=== PATIENT | male | born 1980 | race Caucasian/White ===

== ENCOUNTER 2017-05-11 17:14 | Emergency (ER) | payer OTHER ==
[~2017-05-11] VITALS: Ht 162.6 cm; Wt 79.5 kg
[2017-05-11] MEDS ORDERED: SODIUM CHLORIDE 0.9% 1,000 ML IV ONE (17:25)
[2017-05-11] MEDS ORDERED: METOCLOPRAMIDE HCL 5 MG/ML 2 ML VIAL IVP ONE (17:30)
[2017-05-11] MEDS ORDERED: ONDANSETRON HCL 4 MG/2 ML VIAL IVP ONE (17:30)
[2017-05-11] MEDS ORDERED: KETOROLAC TROMETHAMINE 30 MG/ML VIAL IVP ONE (17:30)
[2017-05-11 17:53] LABS: BASOPHILS % (AUTO) 0.2 % (0.0-2.0); EOSINOPHILS % (AUTO) 0.1 % (1.0-6.0); HEMATOCRIT 43.8 % (41-53); HEMOGLOBIN 15.1 g/dL (13.5-17.5); LYMPHOCYTES # (AUTO) 1.1 K/uL (1.0-4.8); LYMPHOCYTES % (AUTO) 15.9 % (22.0-44.0); MEAN CORPUSCULAR HEMOGLOBIN 30.8 pg (26.0-34.0); MEAN CORPUSCULAR HGB CONC 34.5 G/dL (31.0-37.0); MEAN CORPUSCULAR VOLUME 89 fL (80-100); MONOCYTES # (AUTO) 0.4 K/uL (0.1-1.0); MONOCYTES % (AUTO) 6.3 % (2.0-9.0); NEUTROPHILS # (AUTO) 5.3 K/uL (1.8-7.7); NEUTROPHILS % (AUTO) 77.5 % (40.0-70.0); PLATELET COUNT (AUTO) 206 K/uL (150-450); RED CELL DISTRIBUTION WIDTH 12.5 % (11.5-14.5)
[2017-05-11 18:05] LABS: ANION GAP 10 mmol/L (8-16); CALCIUM, TOTAL 8.6 mg/dL (8.8-10.5); CARBON DIOXIDE 27 mmol/L (22-29); CHLORIDE 104 mmol/L (98-107); GLOMERULAR FILTR. RATE CALC > 60 mL/min (>60); GLUCOSE,RANDOM 85 mg/dL (70-110); POTASSIUM 3.8 mmol/L (3.5-5.1); SODIUM SERUM 141 mmol/L (136-145); UREA NITROGEN, BLOOD 12 mg/dL (7-18)
[2017-05-11 18:14] LABS: ALANINE AMINOTRANSFERASE 47 U/L (12-78); ALBUMIN 4.2 g/dL (3.4-5.0); ALKALINE PHOSPHATASE 71 U/L (46-116); ASPARTATE AMINOTRANSFERASE 32 U/L (15-37); BILIRUBIN,TOTAL 0.4 mg/dL (0.1-1.0); LIPASE 227 U/L (73-393); TOTAL PROTEIN, SERUM 7.3 g/dL (6.4-8.2)
[2017-05-11 18:30] VITALS: BP 149/69
[2017-05-11 19:05] LABS: APPEARANCE,URINE CLEAR (CLEAR); BILIRUBIN,URINE PRELIM. POSITIVE (NEGATIVE); GLUCOSE, URINE (UA) NEGATIVE (NEGATIVE); KETONES,URINE NEGATIVE (NEGATIVE); LEUKOCYTE ESTERASE ,URINE NEGATIVE (NEGATIVE); NITRATE,URINE NEGATIVE (NEGATIVE); OCCULT BLOOD,URINE NEGATIVE (NEGATIVE); PH,URINE 5.5 (5.0-8.0); PROTEIN,URINE NEGATIVE (NEGATIVE); UROBILINOGEN,URINE 0.2 mg/dL (<=1.0)
== END 2017-05-11 18:56 | disposition home or self-care (01) ==
LOC: EMS 17:17
DX: K52.9 Noninfective gastroenteritis and colitis, unspecified (principal); F17.210 Nicotine dependence, cigarettes, uncomplicated; I10 Essential (primary) hypertension
CPT/HCPCS: 36415; 80053; 81003; 83690; 85025; 96361; 96374; 96375; 99284; 99406; J1885; J2405; J2765; J7030

== ENCOUNTER 2017-09-25 04:57 | Emergency (ER) | payer OTHER ==
[~2017-09-25] VITALS: Ht 160 cm; Wt 75.0 kg
[2017-09-25 05:01] VITALS: BP 149/105
== END 2017-09-25 06:25 | disposition left against medical advice (07) ==
LOC: EMS 04:58
DX: M25.561 Pain in right knee (principal); M79.89 Other specified soft tissue disorders; F17.210 Nicotine dependence, cigarettes, uncomplicated; Z53.21 Procedure and treatment not carried out due to patient leaving prior to being seen by health care provider

== ENCOUNTER 2017-09-29 17:41 | Emergency (ER) | payer OTHER ==
[~2017-09-29] VITALS: Ht 167.6 cm; Wt 165.0 kg
[2017-09-29 22:48] VITALS: BP 130/99
== END 2017-09-29 22:51 | disposition home or self-care (01) ==
LOC: EMS 17:42
DX: M25.561 Pain in right knee (principal); G56.03 Carpal tunnel syndrome, bilateral upper limbs; F17.210 Nicotine dependence, cigarettes, uncomplicated
CPT/HCPCS: 29505; 99284

== ENCOUNTER 2017-11-01 07:58 | Emergency (ER) | payer OTHER ==
[~2017-11-01] VITALS: Ht 162.6 cm; Wt 77.3 kg
[2017-11-01 08:14] VITALS: BP 142/97
== END 2017-11-01 09:49 | disposition left against medical advice (07) ==
LOC: EMS 07:59
DX: Z53.21 Procedure and treatment not carried out due to patient leaving prior to being seen by health care provider (principal)

== ENCOUNTER 2017-11-30 03:19 | Emergency (ER) | payer OTHER ==
[~2017-11-30] VITALS: Ht 162.6 cm; Wt 77.3 kg
[2017-11-30 05:54] VITALS: BP 133/82
== END 2017-11-30 06:00 | disposition home or self-care (01) ==
LOC: EMS 03:20
DX: S93.402A Sprain of unspecified ligament of left ankle, initial encounter (principal); F17.210 Nicotine dependence, cigarettes, uncomplicated; X58.XXXA Exposure to other specified factors, initial encounter; Y93.89 Activity, other specified; Y92.89 Other specified places as the place of occurrence of the external cause; Y99.8 Other external cause status
CPT/HCPCS: 29540; 99284

== ENCOUNTER 2018-11-02 12:27 | Emergency (ER) | payer MEDICAID, OTHER ==
[~2018-11-02] VITALS: Ht 157.5 cm; Wt 72.7 kg
[2018-11-02] MEDS ORDERED: OLAN5TAB2 PO (14:28)
[2018-11-02] MEDS ORDERED: PROZ10 PO (14:28)
[2018-11-02 15:11] LABS: BASOPHILS % (AUTO) 0.5 % (0.0-2.0); EOSINOPHILS % (AUTO) 0.2 % (1.0-6.0); HEMATOCRIT 38.9 % (41-53); HEMOGLOBIN 13.5 g/dL (13.5-17.5); LYMPHOCYTES # (AUTO) 1.6 K/uL (1.0-4.8); LYMPHOCYTES % (AUTO) 19.8 % (22.0-44.0); MEAN CORPUSCULAR HEMOGLOBIN 30.6 pg (26.0-34.0); MEAN CORPUSCULAR HGB CONC 34.6 G/dL (31.0-37.0); MEAN CORPUSCULAR VOLUME 89 fL (80-100); MONOCYTES # (AUTO) 0.4 K/uL (0.1-1.0); MONOCYTES % (AUTO) 5.2 % (2.0-9.0); NEUTROPHILS # (AUTO) 6.1 K/uL (1.8-7.7); NEUTROPHILS % (AUTO) 74.3 % (40.0-70.0); PLATELET COUNT (AUTO) 266 K/uL (150-450); RED CELL DISTRIBUTION WIDTH 13.1 % (11.5-14.5)
[2018-11-02 15:22] LABS: ANION GAP 8 mmol/L (8-16); CALCIUM, TOTAL 8.7 mg/dL (8.8-10.5); CARBON DIOXIDE 29 mmol/L (22-29); CHLORIDE 105 mmol/L (98-107); CREATININE 0.82 mg/dL (0.60-1.30); GLOMERULAR FILTR. RATE CALC > 60 mL/min (>60); GLUCOSE,RANDOM 95 mg/dL (70-110); POTASSIUM 3.1 mmol/L (3.5-5.1); SODIUM SERUM 142 mmol/L (136-145); UREA NITROGEN, BLOOD 9 mg/dL (7-18)
[2018-11-02 15:25] LABS: AMPHET/METH SCREEN,URINE POSITIVE (NEGATIVE); BARBITURATE SCREEN, URINE NEGATIVE (NEGATIVE); BENZODIAZEPINES SCREEN,URINE NEGATIVE (NEGATIVE); CANNABINOID SCREEN,URINE NEGATIVE (NEGATIVE); COCAINE SCREEN,URINE NEGATIVE (NEGATIVE); METHADONE SCREEN, URINE NEGATIVE (NEGATIVE); OPIATE SCREEN,URINE POSITIVE (NEGATIVE)
[2018-11-02 15:26] LABS: PHENCYCLIDINE SCREEN,URINE NEGATIVE (NEGATIVE)
[2018-11-02 15:28] LABS: ALANINE AMINOTRANSFERASE 29 U/L (12-78); ALBUMIN 4.1 g/dL (3.4-5.0); ALKALINE PHOSPHATASE 72 U/L (46-116); ASPARTATE AMINOTRANSFERASE 18 U/L (15-37); BILIRUBIN,TOTAL 0.4 mg/dL (0.1-1.0); TOTAL PROTEIN, SERUM 7.1 g/dL (6.4-8.2)
[2018-11-02 16:33] VITALS: BP 148/105
== END 2018-11-02 16:49 | disposition home or self-care (01) ==
LOC: EMS 12:27
DX: F20.9 Schizophrenia, unspecified (principal); F15.10 Other stimulant abuse, uncomplicated; F17.210 Nicotine dependence, cigarettes, uncomplicated; F11.90 Opioid use, unspecified, uncomplicated; Z79.899 Other long term (current) drug therapy
CPT/HCPCS: 36415; 80053; 80307; 85025; 99285; 99406; G0480

== ENCOUNTER 2019-12-05 19:30 | Emergency (ER) | payer MEDICAID, OTHER ==
[~2019-12-05] VITALS: Ht 165.1 cm; Wt 77.3 kg
[~2019-12-05 19:30] MED LIST: OLAN5TAB2 PO; PROZ10 PO
[2019-12-05 20:49] LABS: BASOPHILS % (AUTO) 0.5 % (0.0-2.0); EOSINOPHILS % (AUTO) 0.5 % (1.0-6.0); HEMATOCRIT 45.6 % (41-53); HEMOGLOBIN 15.7 g/dL (13.5-17.5); LYMPHOCYTES # (AUTO) 2.2 K/uL (1.0-4.8); LYMPHOCYTES % (AUTO) 23.9 % (22.0-44.0); MEAN CORPUSCULAR HEMOGLOBIN 30.3 pg (26.0-34.0); MEAN CORPUSCULAR HGB CONC 34.3 G/dL (31.0-37.0); MEAN CORPUSCULAR VOLUME 88 fL (80-100); MONOCYTES # (AUTO) 0.6 K/uL (0.1-1.0); NEUTROPHILS # (AUTO) 6.3 K/uL (1.8-7.7); NEUTROPHILS % (AUTO) 68.1 % (40.0-70.0); PLATELET COUNT (AUTO) 228 K/uL (150-450); RED BLOOD CELL COUNT(AUTO) 5.17 MIL/uL (4.50-5.90); RED CELL DISTRIBUTION WIDTH 13.1 % (11.5-14.5)
[2019-12-05 21:04] LABS: ANION GAP 14 mmol/L (8-16); CALCIUM, TOTAL 9.6 mg/dL (8.8-10.5); CARBON DIOXIDE 26 mmol/L (22-29); CHLORIDE 106 mmol/L (98-107); CREATININE 0.88 mg/dL (0.60-1.30); GLOMERULAR FILTR. RATE CALC > 60 mL/min (>60); GLUCOSE,RANDOM 101 mg/dL (70-110); POTASSIUM 3.4 mmol/L (3.5-5.1); SODIUM SERUM 146 mmol/L (136-145); UREA NITROGEN, BLOOD 16 mg/dL (7-18)
[2019-12-05 21:34] LABS: ALANINE AMINOTRANSFERASE 52 U/L (12-78); ALKALINE PHOSPHATASE 85 U/L (46-116); ASPARTATE AMINOTRANSFERASE 26 U/L (15-37); CREATINE KINASE, TOTAL ONLY 798 U/L (39-308); TOTAL PROTEIN, SERUM 8.6 g/dL (6.4-8.2)
[2019-12-05] MEDS ORDERED: FLUoxetine HCL 10 MG CAPSULE PO ONE (22:30)
[2019-12-05] MEDS ORDERED: OLANZapine 5 MG TABLET PO ONE (22:30)
[2019-12-05 22:57] LABS: AMPHET/METH SCREEN,URINE POSITIVE (NEGATIVE); BARBITURATE SCREEN, URINE NEGATIVE (NEGATIVE); BENZODIAZEPINES SCREEN,URINE NEGATIVE (NEGATIVE); CANNABINOID SCREEN,URINE NEGATIVE (NEGATIVE); COCAINE SCREEN,URINE NEGATIVE (NEGATIVE); METHADONE SCREEN, URINE NEGATIVE (NEGATIVE); OPIATE SCREEN,URINE NEGATIVE (NEGATIVE)
[2019-12-05 22:58] LABS: PHENCYCLIDINE SCREEN,URINE NEGATIVE (NEGATIVE)
[2019-12-05 23:05] VITALS: BP 135/78
== END 2019-12-05 23:29 | disposition home or self-care (01) ==
LOC: EMS 19:30
DX: F20.9 Schizophrenia, unspecified (principal); F15.10 Other stimulant abuse, uncomplicated; F11.90 Opioid use, unspecified, uncomplicated; F12.90 Cannabis use, unspecified, uncomplicated; F17.210 Nicotine dependence, cigarettes, uncomplicated; Z79.899 Other long term (current) drug therapy
CPT/HCPCS: 36415; 80053; 80307; 82550; 85025; 99284; G0480

== ENCOUNTER 2019-12-19 19:51 | Inpatient (IN) | payer OTHER ==
[~2019-12-19] VITALS: Ht 165.1 cm; Wt 79.1 kg
[2019-12-19] MEDS ORDERED: SODIUM CHLORIDE 0.9% 1,000 ML IV ONE ×2 (20:15→22:00)
[2019-12-19 21:20] LABS: BASOPHILS % (AUTO) 0.4 % (0.0-2.0); EOSINOPHILS % (AUTO) 0.5 % (1.0-6.0); HEMATOCRIT 41.1 % (41-53); HEMOGLOBIN 14.1 g/dL (13.5-17.5); LYMPHOCYTES # (AUTO) 1.8 K/uL (1.0-4.8); LYMPHOCYTES % (AUTO) 20.7 % (22.0-44.0); MEAN CORPUSCULAR HEMOGLOBIN 30.4 pg (26.0-34.0); MEAN CORPUSCULAR HGB CONC 34.5 G/dL (31.0-37.0); MEAN CORPUSCULAR VOLUME 88 fL (80-100); MONOCYTES # (AUTO) 0.5 K/uL (0.1-1.0); NEUTROPHILS # (AUTO) 6.4 K/uL (1.8-7.7); NEUTROPHILS % (AUTO) 72.4 % (40.0-70.0); PLATELET COUNT (AUTO) 233 K/uL (150-450); RED BLOOD CELL COUNT(AUTO) 4.65 MIL/uL (4.50-5.90); RED CELL DISTRIBUTION WIDTH 12.8 % (11.5-14.5)
[2019-12-19 21:32] LABS: ANION GAP 10 mmol/L (8-16); CALCIUM, TOTAL 8.8 mg/dL (8.8-10.5); CARBON DIOXIDE 25 mmol/L (22-29); CHLORIDE 108 mmol/L (98-107); CREATININE 0.95 mg/dL (0.60-1.30); GLOMERULAR FILTR. RATE CALC > 60 mL/min (>60); GLUCOSE,RANDOM 109 mg/dL (70-110); POTASSIUM 3.2 mmol/L (3.5-5.1); SODIUM SERUM 143 mmol/L (136-145); UREA NITROGEN, BLOOD 16 mg/dL (7-18)
[2019-12-19 21:56] LABS: ALANINE AMINOTRANSFERASE 35 U/L (12-78); ALBUMIN 4.6 g/dL (3.4-5.0); ALKALINE PHOSPHATASE 80 U/L (46-116); ASPARTATE AMINOTRANSFERASE 19 U/L (15-37); BILIRUBIN,TOTAL 0.7 mg/dL (0.1-1.0); CREATINE KINASE, TOTAL ONLY 640 U/L (39-308); TOTAL PROTEIN, SERUM 7.6 g/dL (6.4-8.2)
[2019-12-19] MEDS ORDERED: ACETAMINOPHEN 325 MG TABLET PO PRN (22:00)
[2019-12-19] MEDS ORDERED: POTASSIUM CHLORIDE 20 MEQ ER TABLET PO PRN (22:00)
[2019-12-19 22:12] LABS: ACETAMINOPHEN < 2 mcg/mL (10-30)
[2019-12-19 22:15] LABS: AMPHET/METH SCREEN,URINE POSITIVE (NEGATIVE); BARBITURATE SCREEN, URINE NEGATIVE (NEGATIVE); BENZODIAZEPINES SCREEN,URINE NEGATIVE (NEGATIVE); CANNABINOID SCREEN,URINE NEGATIVE (NEGATIVE); COCAINE SCREEN,URINE NEGATIVE (NEGATIVE); METHADONE SCREEN, URINE NEGATIVE (NEGATIVE); OPIATE SCREEN,URINE NEGATIVE (NEGATIVE)
[2019-12-19 22:24] LABS: PHENCYCLIDINE SCREEN,URINE NEGATIVE (NEGATIVE)
[2019-12-19] MEDS: POTASSIUM CHL 10 MEQ/WATER 50 ML IV PRN (22:44)
[2019-12-19 23:13] LABS: SALICYLATE 3.3 mg/dL (2.8-20.0)
[2019-12-20] MEDS: POTASSIUM CHL 10 MEQ/WATER 50 ML IV PRN (02:50)
[2019-12-20] MEDS: DOCUSATE SODIUM 100 MG CAPSULE PO SCH ×2 (09:00→20:08)
[2019-12-20] MEDS: FAMOTIDINE 20 MG TABLET PO SCH (09:00)
[2019-12-20 09:45] VITALS: BP 108/67
[2019-12-20 13:30] VITALS: BP 118/70
[2019-12-20 16:04] VITALS: BP 112/70
[2019-12-20 19:44] VITALS: BP 113/71
[2019-12-20 23:54] VITALS: BP 108/65
[2019-12-21] VITALS (7 sets, daily range): BP systolic 132–139; BP diastolic 77–95
[2019-12-21] MEDS: DOCUSATE SODIUM 100 MG CAPSULE PO SCH ×2 (09:24→20:17)
[2019-12-21] MEDS: FAMOTIDINE 20 MG TABLET PO SCH (09:24)
[2019-12-21] MEDS: FLUoxetine HCL 20 MG CAPSULE PO SCH (14:13)
[2019-12-21] MEDS: OLANZapine 10 MG TABLET PO SCH (22:37)
[2019-12-22 05:30] VITALS: BP 142/92
[2019-12-22] MEDS: FAMOTIDINE 20 MG TABLET PO SCH (08:35)
[2019-12-22] MEDS: OLANZapine 10 MG TABLET PO SCH (08:35)
[2019-12-22] MEDS: DOCUSATE SODIUM 100 MG CAPSULE PO SCH (08:35)
[2019-12-22] MEDS: FLUoxetine HCL 20 MG CAPSULE PO SCH (08:35)
[2019-12-22 12:44] VITALS: BP 138/80
[2019-12-22 16:37] VITALS: BP 134/83
== END 2019-12-22 18:45 | disposition home or self-care (01) | DRG 817 ==
LOC: EMS 19:52 → 5S 21:59 → 6S 12-21 14:58
PROVIDERS: ADMIT Internal Medicine; ATTEND Internal Medicine
DX: T43.592A Poisoning by other antipsychotics and neuroleptics, intentional self-harm, initial encounter (principal); F25.9 Schizoaffective disorder, unspecified; Y92.89 Other specified places as the place of occurrence of the external cause; F15.90 Other stimulant use, unspecified, uncomplicated; Z91.19 Patient's noncompliance with other medical treatment and regimen; F11.90 Opioid use, unspecified, uncomplicated
CPT/HCPCS: 51701; 84132; 93005; G0378; G0480; G0481; J3480; J7030